=== PATIENT | female | born 1975 | race Two or more races ===

== ENCOUNTER 2016-10-09 23:48 | Emergency (ER) | payer MEDICAID ==
--- NOTE | 2016-10-10 19:14 | ER ---
ADMIT: 10/09/2016 RM/LOC: ER [facility] MR#: [id number] [facility] [address] [address] AGUSTIN [address] [place] [address] Emergency Room Report SEX: F AGE: 41 : 1975 DATE: 10/09/2016 The patient is a 41-year-old female complaining of acute onset rigors and chills tonight, associated with nonproductive cough throughout the day. No urinary symptoms. Exam remarkable for toxic appearing, febrile patient of 102.3. Exam otherwise unremarkable. No CVA tenderness. UA; positive nitrite, 3+ leukocyte esterase, 269 WBC, 6 RBCs. Chest x-ray negative. The patient given Tylenol 1 g with temperature defervescence. Bactrim double- strength p.o. in department, tolerated well. Home with Bactrim double- strength b.i.d. x7 days. Follow up, Dr. Ned Montes in 2 weeks for urinalysis. Kenny Topete MD/ ashley JOB #: [id number] CC: Kenny Topete MD, Attending Physician Ned Montes MD, Family Physician Ned Montes MD
== END 2016-10-10 00:55 | disposition home or self-care (01) ==
LOC: ER 23:48
DX: N30.90 Cystitis, unspecified without hematuria (principal); B96.20 Unspecified Escherichia coli [E. coli] as the cause of diseases classified elsewhere; Z90.49 Acquired absence of other specified parts of digestive tract; Z98.890 Other specified postprocedural states